=== PATIENT | male | born 1950 | race African-American/Black ===

== ENCOUNTER 2017-10-19 13:34 | Emergency (ER) | payer MEDICARE, BC ==
[2017-10-19 14:08] LABS: #Lymphocytes 1.4 thou/uL (1.20-3.40); #Monocytes 0.3 thou/uL (0.11-0.59); #Neutrophils 3.4 thou/uL (1.40-6.50); %Basophils 0.3 % (0.0-1.0); %Eosinophils 0.6 % (0.0-10.0); %Lymphocytes 26.9 % (21.0-51.0); %Monocytes 6.3 % (0.0-10.0); %Neutrophils 65.9 % (42.0-75.0); Hemoglobin 13.8 g/dL (14.0-18.0); Mean Corpuscular HGB CONC 32.9 g/dL (32.0-36.0); Mean Corpuscular Hemoglobin 28.8 pg (27.0-31.0); Mean Corpuscular Volume 87.4 fl (80.0-94.0); Mean Platelet Volume 8.4 fL (7.4-10.4); Platelet Count 159 thou/uL (130-400); RBC Distribution Width 13.5 % (11.5-14.5); White Blood Cell (WBC) Count 5.1 thou/uL (4.8-10.8)
[2017-10-19 14:35] LABS: CKMB 4.5 ng/mL (0-6.6); Troponin I 0.013 ng/mL (< 0.028)
[2017-10-19 14:52] LABS: ALT (SGPT) 20 U/L (8-55); AST (SGOT) 27 U/L (5-34); Albumin 4.2 g/dL (3.4-4.8); Alkaline Phosphatase 90 U/L (40-150); Anion Gap 18 mmol/L (10-20); BUN (Urea Nitrogen) 13 mg/dL (8.4-25.7); Bilirubin, Total 0.4 mg/dL (0.2-1.2); Calc. Creatinine Clearance 0 mL/min (70-130); Calcium 9.5 mg/dL (7.8-10.44); Carbon Dioxide 20 mmol/L (23-31); Chloride 104 mmol/L (98-107); Estimated GFR-MDRD 72; Globulin 3.4 g/dL (2.4-3.5); Glucose 217 mg/dL (80-115); Potassium 4.8 mmol/L (3.5-5.1); Protein, Total 7.6 g/dL (5.8-8.1); Sodium 137 mmol/L (136-145)
--- NOTE | 2017-10-19 15:04 | RAD ---
AP CHEST: History: 66-year-old, history of syncope. Date: 10-19-17 Comparison: 12-11-14 FINDINGS: AP chest demonstrates sternotomy wires seen. The lungs are well aerated. No evidence of active intrat horacic disease seen. No evidence of effusions, pneumonia, or pneumothorax seen. IMPRESSION: Unremarkable AP view chest. POS: [facility]
== END 2017-10-19 15:23 | disposition home or self-care (01) ==
LOC: ERS 13:34
DX: S80.212A Abrasion, left knee, initial encounter (principal); R55 Syncope and collapse; E11.9 Type 2 diabetes mellitus without complications; I10 Essential (primary) hypertension; Z79.82 Long term (current) use of aspirin; Z79.899 Other long term (current) drug therapy; Z79.84 Long term (current) use of oral hypoglycemic drugs; W19.XXXA Unspecified fall, initial encounter
CPT/HCPCS: 71045; 80053; 82553; 83880; 84484; 85025; 93005

== ENCOUNTER 2021-09-01 19:23 | Observation (INO) | payer MEDICARE, BC ==
[2021-09-01 20:22] LABS: #Lymphocytes 0.8 thou/uL (1.20-3.40); #Monocytes 0.6 thou/uL (0.11-0.59); #Neutrophils 3.2 thou/uL (1.40-6.50); %Eosinophils 0.2 % (0.0-10.0); %Lymphocytes 16.8 % (21.0-51.0); %Monocytes 12.5 % (0.0-10.0); %Neutrophils 70.4 % (42.0-75.0); Hemoglobin 13.2 g/dL (14.0-18.0); Mean Corpuscular HGB CONC 33.4 g/dL (32.0-36.0); Mean Corpuscular Hemoglobin 29.2 pg (27.0-31.0); Mean Corpuscular Volume 87.3 fL (78.0-98.0); RBC Distribution Width 12.7 % (11.5-14.5); Red Blood Cell (RBC) Count 4.53 mill/uL (4.70-6.10); White Blood Cell (WBC) Count 4.5 thou/uL (4.8-10.8)
[2021-09-01 20:36] LABS: MDiff Complete? YES; Platelet Count 101 thou/uL (130-400); Platelet Morphology Comment Appears Decreased; Polychromasia SLIGHT = 2-3 cells (100X) (0-2/hpf)
[2021-09-01 20:43] LABS: ALT (SGPT) 14 U/L (8-55); AST (SGOT) 20 U/L (5-34); Albumin 4.2 g/dL (3.4-4.8); Alkaline Phosphatase 88 U/L (40-110); Anion Gap 14 mmol/L (10-20); BUN (Urea Nitrogen) 12 mg/dL (8.4-25.7); Bilirubin, Total 0.4 mg/dL (0.2-1.2); CK (CPK) 169 U/L (30-200); Calc. Creatinine Clearance 0 mL/min (70-130); Calcium 8.7 mg/dL (7.8-10.44); Carbon Dioxide 23 mmol/L (23-31); Chloride 100 mmol/L (98-107); Glucose 202 mg/dL (83-110); Magnesium 1.5 mg/dL (1.6-2.6); Potassium 4.4 mmol/L (3.5-5.1); Protein, Total 7.2 g/dL (5.8-8.1); Sodium 133 mmol/L (136-145)
[2021-09-01] MEDS ORDERED: Magnesium 2 GM/50 ML BAG (IN WATER) ONE (22:44)
[2021-09-01] MEDS ORDERED: Dextrose 50% Abboject 50 ML SYRINGE SLOW IVP PRN (23:58)
[2021-09-01] MEDS ORDERED: HumaLOG 300 UNITS/3 ML VIAL SC PRN ×2 (23:58)
[2021-09-01] MEDS ORDERED: Dextrose 5% in Water 1,000 ML IV PRN (23:58)
[2021-09-02 00:10] VITALS: BMI 26.4
[2021-09-02 01:18] LABS: Phosphorus 2.5 mg/dL (2.3-4.7)
[2021-09-02 01:24] LABS: Troponin I 0.021 ng/mL (< 0.028)
[2021-09-02] MEDS ORDERED: Acetaminophen 325 MG TAB PO PRN (04:11)
[2021-09-02] MEDS ORDERED: Ondansetron ODT 4 MG TAB PO PRN (04:11)
[2021-09-02] MEDS ORDERED: Ondansetron PF 4 MG/2 ML Vial IVP PRN (04:11)
[2021-09-02] MEDS ORDERED: Acetaminophen 650 MG Suppository PR PRN (04:11)
[2021-09-02 05:12] LABS: Bacteria/HPF None Seen HPF (None Seen); Bilirubin Negative (Negative); Blood, Urine Trace (Negative); Clarity Clear (Clear); Glucose, Urine (Dipstick) 100 mg/dL (Negative); Ketone, Urine Negative (Negative); Leukocyte Negative Leu/uL (Negative); Nitrite Negative (Negative); Protein, Urine (Dipstick) Negative (Neg-Trace); RBC/HPF 0-3 HPF (0-3); Specific Gravity, Urine 1.013 (1.002-1.036); Squamous Epithelial 0-3 HPF (0-3); Urobilinogen Normal mg/dL (Less than 2); WBC/HPF 0-3 HPF (0-3); pH, Urine 7.5 (5.0-9.0)
[2021-09-02 05:23] LABS: Urine Culture Reflex No No
[2021-09-02] MEDS ORDERED: Electrolyte Replacement Protocol 1 EACH FS SCH (05:45)
[2021-09-02] MEDS ORDERED: Piperacillin/Tazobactam 3.375 GM in Sodium Chloride 0.9% 100 ML IVPB SCH ×2 (06:00→10:00)
[2021-09-02] MEDS ORDERED: Magnesium 2 GM/50 ML 2 GM in Premix Bag 1 BAG IVPB SCH (06:00)
[2021-09-02 06:30] LABS: Troponin I 0.032 ng/mL (< 0.028)
[2021-09-02 07:43] LABS: Lactic Acid 1.3 mmol/L (0.5-2.2)
[2021-09-02 08:09] LABS: Free T4 (Free Thyroxine) 0.9 ng/dL (0.70-1.48)
[2021-09-02] MEDS ORDERED: Enoxaparin Sodium 40 MG/0.4 ML SYRINGE SC SCH (09:00)
[2021-09-02] MEDS ORDERED: Iopamidol 370 76% 100 ML VIAL ONE (11:39)
[2021-09-02 12:29] LABS: SARS-CoV-2 PCR by NAA Not Detected (NotDetected)
[2021-09-02 12:38] LABS: Hemoglobin 13.1 g/dL (14.0-18.0); Mean Corpuscular HGB CONC 32.5 g/dL (32.0-36.0); Mean Corpuscular Hemoglobin 28.4 pg (27.0-31.0); Mean Corpuscular Volume 87.4 fL (78.0-98.0); Mean Platelet Volume 8.9 fL (7.4-10.4); Platelet Count 102 thou/uL (130-400); RBC Distribution Width 12.9 % (11.5-14.5); White Blood Cell (WBC) Count 3.7 thou/uL (4.8-10.8)
[2021-09-02 12:49] LABS: ALT (SGPT) 15 U/L (8-55); AST (SGOT) 26 U/L (5-34); Alkaline Phosphatase 79 U/L (40-110); Anion Gap 17 mmol/L (10-20); BUN (Urea Nitrogen) 10 mg/dL (8.4-25.7); Bilirubin, Total 0.4 mg/dL (0.2-1.2); Calc. Creatinine Clearance 67 mL/min (70-130); Calcium 8.5 mg/dL (7.8-10.44); Carbon Dioxide 20 mmol/L (23-31); Chloride 99 mmol/L (98-107); Globulin 3.4 g/dL (2.4-3.5); Glucose 189 mg/dL (83-110); Protein, Total 7.4 g/dL (5.8-8.1); Sodium 132 mmol/L (136-145)
[2021-09-02 12:55] LABS: Band 6 % (5-11); Lymphocytes 13 % (21-51); MDiff Complete? YES; Monocytes 15 % (0-10); Neutrophil 65 % (42-75); Ovalocytes SLIGHT = 2-5 cells (100X) (0-1/hpf); Platelet Morphology Comment Appears Decreased; Polychromasia SLIGHT = 2-3 cells (100X) (0-2/hpf); Reactive Lymphocytes 1 % (0-10)
[2021-09-02 14:41] VITALS: TEMP 97.6
[2021-09-02] MEDS ORDERED: Lisinopril 10 MG TAB PO SCH (15:45)
[2021-09-02 16:41] VITALS: BP 172/96
[2021-09-02] MEDS ORDERED: Metoprolol Tartrate 25 MG TAB PO SCH (21:00)
[2021-09-03] MEDS ORDERED: Lisinopril 10 MG TAB PO SCH (09:00)
== END 2021-09-02 17:15 | disposition home or self-care (01) ==
LOC: ERS 19:23 → 2NO 22:48
PROVIDERS: ADMIT Student in an Organized Health Care Education/Training Program; ATTEND Internal Medicine
DX: R55 Syncope and collapse (principal); R53.1 Weakness; E87.1 Hypo-osmolality and hyponatremia; I71.4 Abdominal aortic aneurysm, without rupture; I72.3 Aneurysm of iliac artery; N28.1 Cyst of kidney, acquired; E83.42 Hypomagnesemia; E11.51 Type 2 diabetes mellitus with diabetic peripheral angiopathy without gangrene; I70.203 Unspecified atherosclerosis of native arteries of extremities, bilateral legs; I25.10 Atherosclerotic heart disease of native coronary artery without angina pectoris; D69.6 Thrombocytopenia, unspecified; I13.0 Hypertensive heart and chronic kidney disease with heart failure and stage 1 through stage 4 chronic kidney disease, or unspecified chronic kidney disease; E11.22 Type 2 diabetes mellitus with diabetic chronic kidney disease; N18.9 Chronic kidney disease, unspecified; I50.22 Chronic systolic (congestive) heart failure; R06.6 Hiccough; R77.8 Other specified abnormalities of plasma proteins; R65.10 Systemic inflammatory response syndrome (SIRS) of non-infectious origin without acute organ dysfunction; I08.1 Rheumatic disorders of both mitral and tricuspid valves; E78.00 Pure hypercholesterolemia, unspecified; Z87.891 Personal history of nicotine dependence; Z79.82 Long term (current) use of aspirin; Z79.84 Long term (current) use of oral hypoglycemic drugs; Z79.899 Other long term (current) drug therapy; Z95.1 Presence of aortocoronary bypass graft; Z20.822 Contact with and (suspected) exposure to COVID-19
CPT/HCPCS: 71045; 74177; 80053; 81001; 82550; 82962; 83605; 83735; 84100; 84439; 84481; 84484 ×3; 85025; 87040; 87149 ×2; 93005; 93306; 93880; 96367; 96376; G0378 ×2; U0003; U0005; 36415; 36416; 84443; J2543; J3475; J3490; Q9967

== ENCOUNTER 2021-11-24 09:00 | Inpatient (IN) | payer MEDICARE, BC ==
[2021-11-29] MEDS ORDERED: Dexamethasone 4 mg/ml Vial ONE (06:32)
[2021-11-29] MEDS ORDERED: EPINEPHrine 1 MG/ML AMP ONE (06:32)
[2021-11-29] MEDS ORDERED: Heparin 10,000 UNITS/ 10 ML VIAL ONE ×2 (06:32→08:14)
[2021-11-29] MEDS ORDERED: Bupivacaine PF 0.5% 30 ML VIAL ONE (06:32)
[2021-11-29] MEDS ORDERED: Protamine Sulfate 50 MG/5 ML VIAL ONE ×2 (06:32→09:49)
[2021-11-29] MEDS ORDERED: Midazolam HCl 2 mg/2 ml Vial ONE (06:48)
[2021-11-29] MEDS ORDERED: fentaNYL Citrate/PF 100 MCG/2 ML SYRINGE ONE ×2 (06:48→09:45)
[2021-11-29] MEDS ORDERED: Lidocaine 1% MPF 2 ML VIAL ONE (07:07)
[2021-11-29] MEDS ORDERED: ceFAZolin (BATCH) 2 GM/100 ML BAG ONE (07:25)
[2021-11-29] MEDS ORDERED: Rocuronium Bromide 10 MG/ML (10ML VIAL) ONE (07:46)
[2021-11-29] MEDS ORDERED: Lidocaine 1% PF 5 ML VIAL ONE (07:46)
[2021-11-29] MEDS ORDERED: PROPOFOL 200 MG/20 ML VIAL ONE (07:46)
[2021-11-29] MEDS ORDERED: Dexamethasone 20 MG/5 ML VIAL ONE (07:46)
[2021-11-29] MEDS ORDERED: Albumin 5% 500 ML ONE ×2 (08:21→09:09)
[2021-11-29] MEDS ORDERED: Norepinephrine 4 MG/4 ML VIAL ONE ×2 (08:28→08:32)
[2021-11-29] MEDS ORDERED: Insulin Regular 300 UNITS/3 ML VIAL ONE (09:07)
[2021-11-29] MEDS ORDERED: Sodium Bicarb 50 MEQ/50 ML Abboject 8.4% SYRINGE ONE ×2 (09:09→09:45)
[2021-11-29] MEDS ORDERED: Propofol 1,000 MG/100 ML VIAL IV ONE (11:10)
[2021-11-29 11:18] LABS: Actual Bicarbonate (HCO3a) 22.1 mEq/L (22-28); Base Excess (BEa) -4.4 mEq/L (-2.0 to +3.0); Calcium, Ionized (arterial) 0.97 mmol/L (1.12-1.30); Carboxyhemoglobin (COHb) 0.3 gm% (0.0-3.0); Hemoglobin (Hb) 11.2 g/dL (14.0-18.0); Potassium - ABG Lab 3.82 mmol/L (3.70-5.30); pH, Arterial 7.29 (7.35-7.45)
[2021-11-29] MEDS ORDERED: Acetaminophen 325 MG TAB PO PRN (11:19)
[2021-11-29] MEDS ORDERED: Morphine 2 MG/ML VIAL SLOW IVP PRN ×2 (11:19→12:00)
[2021-11-29] MEDS ORDERED: Morphine 4 MG/ML VIAL SLOW IVP PRN (11:19)
[2021-11-29] MEDS ORDERED: Norepinephrine 8 MG/0.9% NS 250 ML IVPB PRN (11:19)
[2021-11-29] MEDS ORDERED: traMADol HCl 50 MG TAB PO PRN ×2 (11:19)
[2021-11-29] MEDS ORDERED: Promethazine HCl 25 MG/ML VIAL IM PRN (11:19)
[2021-11-29] MEDS ORDERED: Insulin Regular 300 UNITS/3 ML VIAL SC PRN (11:19)
[2021-11-29 11:23] LABS: Puncture Site Arterial Line
[2021-11-29] MEDS ORDERED: Promethazine HCl 25 MG SUPP PR PRN (11:26)
[2021-11-29] MEDS ORDERED: HUMULIN R 100 UNITS in Sodium Chloride 0.9% 100 ML IVPB SCH (11:30)
[2021-11-29] MEDS: Sodium Chloride 0.9% 1,000 ML IV SCH ×2 (11:47→21:29)
[2021-11-29] MEDS ORDERED: Electrolyte Replacement Protocol 1 EACH FS ONE (11:49)
[2021-11-29] MEDS ORDERED: fentaNYL Citrate-0.9 % NaCl/PF 100 ML IV SCH (12:00)
[2021-11-29] MEDS ORDERED: Ventilator Sedation Protocol 1 EACH FS SCH (12:00)
[2021-11-29] MEDS ORDERED: Fentanyl BOLUS 250 ML IVPB PRN (12:00)
[2021-11-29] MEDS ORDERED: Propofol 1,000 MG/100 ML VIAL IV PRN (12:00)
[2021-11-29] MEDS ORDERED: Electrolyte Replacement Protocol FS PRN (12:00)
[2021-11-29] MEDS ORDERED: Lorazepam 2 MG/ML VIAL SLOW IVP PRN (12:00)
[2021-11-29] MEDS ORDERED: Propofol BOLUS 1,000 MG/100 ML VIAL IV PRN (12:00)
[2021-11-29 12:12] LABS: Anion Gap 9 mmol/L (10-20); BUN (Urea Nitrogen) 14 mg/dL (8.4-25.7); Calc. Creatinine Clearance 74 mL/min (70-130); Calcium 6.5 mg/dL (7.8-10.44); Carbon Dioxide 22 mmol/L (23-31); Chloride 114 mmol/L (98-107); Glucose 160 mg/dL (83-110); Potassium 3.8 mmol/L (3.5-5.1); Sodium 141 mmol/L (136-145)
[2021-11-29 12:18] LABS: #Lymphocytes 1.6 thou/uL (1.20-3.40); #Monocytes 0.2 thou/uL (0.11-0.59); %Basophils 0.2 % (0.0-1.0); %Eosinophils 0.5 % (0.0-10.0); %Lymphocytes 16.1 % (21.0-51.0); %Monocytes 2.2 % (0.0-10.0); Hemoglobin 11.1 g/dL (14.0-18.0); MDiff Complete? YES; Mean Corpuscular HGB CONC 33.3 g/dL (32.0-36.0); Mean Corpuscular Hemoglobin 30.1 pg (27.0-31.0); Mean Corpuscular Volume 90.2 fL (78.0-98.0); Mean Platelet Volume 8.9 fL (7.4-10.4); Platelet Count 81 thou/uL (130-400); Platelet Morphology Comment Appears Decreased; Polychromasia SLIGHT = 2-3 cells (100X) (0-2/hpf); RBC Distribution Width 13.7 % (11.5-14.5); Red Blood Cell (RBC) Count 3.69 mill/uL (4.70-6.10); White Blood Cell (WBC) Count 9.9 thou/uL (4.8-10.8)
[2021-11-29 12:26] LABS: Actual Bicarbonate (HCO3a) 19.1 mEq/L (22-28); Base Excess (BEa) -4.5 mEq/L (-2.0 to +3.0); CO2 Tension 30.7 mmHg (35.0-45.0); Calcium, Ionized (arterial) 0.96 mmol/L (1.12-1.30); Carboxyhemoglobin (COHb) 0.3 gm% (0.0-3.0); Hemoglobin (Hb) 11.8 g/dL (14.0-18.0); O2 Tension (PaO2), arterial 86.4 mmHg (> 70.0); Potassium - ABG Lab 3.36 mmol/L (3.70-5.30); pH, Arterial 7.41 (7.35-7.45)
[2021-11-29 12:28] LABS: Puncture Site Arterial Line
[2021-11-29 12:29] LABS: ALV-art Gradient 160.425 mmHg (0-20)
[2021-11-29 14:21] LABS: Actual Bicarbonate (HCO3a) 17.2 mEq/L (22-28); Base Excess (BEa) -4.4 mEq/L (-2.0 to +3.0); Calcium, Ionized (arterial) 0.93 mmol/L (1.12-1.30); Carboxyhemoglobin (COHb) 0.3 gm% (0.0-3.0); Hemoglobin (Hb) 12.1 g/dL (14.0-18.0); O2 Tension (PaO2), arterial 153.1 mmHg (> 70.0); Potassium - ABG Lab 3.15 mmol/L (3.70-5.30); pH, Arterial 7.49 (7.35-7.45)
[2021-11-29 14:22] LABS: ALV-art Gradient 103.225 mmHg (0-20); CO2 Tension 23.1 mmHg (35.0-45.0); Puncture Site Arterial Line
[2021-11-29] MEDS: Morphine 2 MG/ML VIAL SLOW IVP PRN ×2 (14:55→20:06)
[2021-11-29] MEDS ORDERED: hydrALAZINE 20 MG/ML VIAL SLOW IVP PRN ×2 (15:27)
[2021-11-29] MEDS: ceFAZolin (BATCH) 2 GM in Premix Bag 1 BAG IVPB SCH (16:11)
[2021-11-29] MEDS: Ondansetron PF 4 MG/2 ML Vial IVP PRN (16:31)
[2021-11-29] MEDS: traMADol HCl 50 MG TAB PO PRN (18:26)
[2021-11-30] MEDS: ceFAZolin (BATCH) 2 GM in Premix Bag 1 BAG IVPB SCH ×2 (00:06→08:58)
[2021-11-30] MEDS: Morphine 4 MG/ML VIAL SLOW IVP PRN ×4 (00:06→19:32)
[2021-11-30] MEDS: traMADol HCl 50 MG TAB PO PRN ×4 (03:12→20:59)
[2021-11-30] MEDS: Sodium Chloride 0.9% 1,000 ML IV SCH (04:46)
[2021-11-30 04:47] LABS: #Lymphocytes 0.7 thou/uL (1.20-3.40); #Monocytes 0.7 thou/uL (0.11-0.59); #Neutrophils 8.9 thou/uL (1.40-6.50); %Eosinophils 0.1 % (0.0-10.0); %Monocytes 6.7 % (0.0-10.0); %Neutrophils 86.2 % (42.0-75.0); Mean Corpuscular Hemoglobin 30.2 pg (27.0-31.0); Mean Corpuscular Volume 88.7 fL (78.0-98.0); Mean Platelet Volume 8.8 fL (7.4-10.4); Platelet Count 86 thou/uL (130-400); RBC Distribution Width 14.3 % (11.5-14.5); Red Blood Cell (RBC) Count 3.66 mill/uL (4.70-6.10); White Blood Cell (WBC) Count 10.3 thou/uL (4.8-10.8)
[2021-11-30 04:59] LABS: Anion Gap 13 mmol/L (10-20); BUN (Urea Nitrogen) 15 mg/dL (8.4-25.7); Calc. Creatinine Clearance 75 mL/min (70-130); Calcium 7.4 mg/dL (7.8-10.44); Carbon Dioxide 20 mmol/L (23-31); Chloride 112 mmol/L (98-107); Glucose 147 mg/dL (83-110); Sodium 141 mmol/L (136-145)
[2021-11-30] MEDS ORDERED: Dextrose 50% Abboject 50 ML SYRINGE SLOW IVP PRN (06:04)
[2021-11-30] MEDS ORDERED: Dextrose 5% in Water 1,000 ML IV PRN (06:04)
[2021-11-30] MEDS ORDERED: Sodium Chloride 0.9% 1,000 ML IV SCH (06:05)
[2021-11-30] MEDS: Aspirin 81 mg Enteric Coated Tablet PO SCH (08:08)
[2021-11-30] MEDS: Pantoprazole 40 MG VIAL IVP SCH (08:09)
[2021-11-30] MEDS: Multivitamin W/ Minerals 1 TAB PO SCH (08:09)
[2021-11-30] MEDS: Ondansetron PF 4 MG/2 ML Vial IVP PRN (08:09)
[2021-11-30] MEDS ORDERED: Aspirin Chewable 81 MG TAB PO SCH (09:00)
[2021-11-30] MEDS: HumaLOG 300 UNITS/3 ML VIAL SC PRN ×3 (11:29→23:48)
[2021-11-30] MEDS: Atorvastatin Calcium 20 MG TAB PO SCH (20:59)
[2021-12-01] MEDS: HumaLOG 300 UNITS/3 ML VIAL SC PRN ×4 (06:20→22:44)
[2021-12-01] MEDS: traMADol HCl 50 MG TAB PO PRN ×2 (06:26→20:07)
[2021-12-01] MEDS: Multivitamin W/ Minerals 1 TAB PO SCH (08:20)
[2021-12-01] MEDS: Aspirin 81 mg Enteric Coated Tablet PO SCH (08:20)
[2021-12-01] MEDS: Pantoprazole 40 MG VIAL IVP SCH (08:20)
[2021-12-01] MEDS: Morphine 4 MG/ML VIAL SLOW IVP PRN ×3 (08:21→16:47)
[2021-12-01] MEDS: Atorvastatin Calcium 20 MG TAB PO SCH (20:05)
[2021-12-02] MEDS: Morphine 4 MG/ML VIAL SLOW IVP PRN ×4 (04:16→21:01)
[2021-12-02] MEDS: traMADol HCl 50 MG TAB PO PRN ×3 (06:12→17:55)
[2021-12-02] MEDS: HumaLOG 300 UNITS/3 ML VIAL SC PRN ×3 (06:13→21:02)
[2021-12-02] MEDS: Aspirin 81 mg Enteric Coated Tablet PO SCH (09:18)
[2021-12-02] MEDS: Multivitamin W/ Minerals 1 TAB PO SCH (09:18)
[2021-12-02] MEDS: Pantoprazole 40 MG VIAL IVP SCH (09:19)
[2021-12-02] MEDS ORDERED: Furosemide 40 MG/4 ML VIAL SLOW IVP SCH (14:30)
[2021-12-02] MEDS: metFORMIN 500 MG TAB PO SCH (16:28)
[2021-12-02] MEDS: Atorvastatin Calcium 20 MG TAB PO SCH (20:57)
[2021-12-03] MEDS: traMADol HCl 50 MG TAB PO PRN ×3 (03:19→18:30)
[2021-12-03] MEDS: HumaLOG 300 UNITS/3 ML VIAL SC PRN ×3 (05:37→17:45)
[2021-12-03] MEDS ORDERED: Furosemide 20 MG TAB PO SCH (09:00)
[2021-12-03] MEDS: Furosemide 40 MG TAB PO SCH ×2 (09:19→15:25)
[2021-12-03] MEDS: Multivitamin W/ Minerals 1 TAB PO SCH (09:19)
[2021-12-03] MEDS: Alogliptin 25 MG TAB PO SCH (09:19)
[2021-12-03] MEDS: Pantoprazole 40 MG VIAL IVP SCH (09:19)
[2021-12-03] MEDS: Potassium Chloride 10 MEQ TAB PO SCH ×2 (09:19→17:45)
[2021-12-03] MEDS: metFORMIN 500 MG TAB PO SCH ×2 (09:19→17:45)
[2021-12-03] MEDS: Aspirin 81 mg Enteric Coated Tablet PO SCH (09:19)
[2021-12-03] MEDS: Atorvastatin Calcium 20 MG TAB PO SCH (20:39)
[2021-12-04] MEDS: traMADol HCl 50 MG TAB PO PRN ×4 (00:38→20:01)
[2021-12-04] MEDS: Ondansetron PF 4 MG/2 ML Vial IVP PRN ×2 (00:39→13:20)
[2021-12-04 05:13] LABS: Anion Gap 16 mmol/L (10-20); BUN (Urea Nitrogen) 19 mg/dL (8.4-25.7); Calc. Creatinine Clearance 72 mL/min (70-130); Calcium 8.1 mg/dL (7.8-10.44); Carbon Dioxide 25 mmol/L (23-31); Chloride 98 mmol/L (98-107); Glucose 195 mg/dL (83-110); Potassium 3.4 mmol/L (3.5-5.1); Sodium 136 mmol/L (136-145)
[2021-12-04] MEDS: HumaLOG 300 UNITS/3 ML VIAL SC PRN (05:41)
[2021-12-04] MEDS: Potassium Chloride 10 MEQ TAB PO SCH ×2 (09:25→17:59)
[2021-12-04] MEDS: Multivitamin W/ Minerals 1 TAB PO SCH (09:25)
[2021-12-04] MEDS: Pantoprazole 40 MG VIAL IVP SCH (09:26)
[2021-12-04] MEDS: Furosemide 40 MG TAB PO SCH ×2 (09:26→14:35)
[2021-12-04] MEDS: metFORMIN 500 MG TAB PO SCH ×2 (09:26→17:58)
[2021-12-04] MEDS: Aspirin 81 mg Enteric Coated Tablet PO SCH (09:26)
[2021-12-04] MEDS: Alogliptin 25 MG TAB PO SCH (09:26)
[2021-12-04] MEDS: Lactated Ringer's 1,000 ML IV SCH ×2 (13:41→21:11)
[2021-12-04] MEDS ORDERED: Metoclopramide HCl 10 MG/2 ML VIAL IVP SCH (14:30)
[2021-12-04] MEDS ORDERED: Ondansetron ORAL SOLN. 4 MG/5 ML UDCUP PO PRN (16:48)
[2021-12-04] MEDS ORDERED: Haloperidol Lactate 5 MG/ML VIAL SLOW IVP SCH (17:00)
[2021-12-04] MEDS: Metoclopramide HCl 10 MG/2 ML VIAL IVP SCH ×2 (17:58→23:45)
[2021-12-04] MEDS ORDERED: Ondansetron ODT 8 MG TAB PO PRN (20:00)
[2021-12-04] MEDS: Atorvastatin Calcium 20 MG TAB PO SCH (20:01)
[2021-12-05 04:25] LABS: #Lymphocytes 0.4 thou/uL (1.20-3.40); #Monocytes 0.5 thou/uL (0.11-0.59); #Neutrophils 3.3 thou/uL (1.40-6.50); %Basophils 0.3 % (0.0-1.0); %Eosinophils 0.2 % (0.0-10.0); %Lymphocytes 9.7 % (21.0-51.0); %Monocytes 12.4 % (0.0-10.0); %Neutrophils 77.4 % (42.0-75.0); Hemoglobin 9.4 g/dL (14.0-18.0); Mean Corpuscular Hemoglobin 29.9 pg (27.0-31.0); Mean Corpuscular Volume 90.4 fL (78.0-98.0); Mean Platelet Volume 8.3 fL (7.4-10.4); Platelet Count 208 thou/uL (130-400); RBC Distribution Width 14.1 % (11.5-14.5); Red Blood Cell (RBC) Count 3.15 mill/uL (4.70-6.10); White Blood Cell (WBC) Count 4.3 thou/uL (4.8-10.8)
[2021-12-05 04:48] LABS: Anion Gap 19 mmol/L (10-20); BUN (Urea Nitrogen) 22 mg/dL (8.4-25.7); Calc. Creatinine Clearance 60 mL/min (70-130); Calcium 8.5 mg/dL (7.8-10.44); Carbon Dioxide 22 mmol/L (23-31); Chloride 99 mmol/L (98-107); Glucose 282 mg/dL (83-110); Lipase 19 U/L (8-78); Potassium 3.5 mmol/L (3.5-5.1); Sodium 136 mmol/L (136-145)
[2021-12-05] MEDS: Lactated Ringer's 1,000 ML IV SCH ×3 (05:17→21:31)
[2021-12-05] MEDS: Metoclopramide HCl 10 MG/2 ML VIAL IVP SCH ×4 (05:17→23:43)
[2021-12-05] MEDS: HumaLOG 300 UNITS/3 ML VIAL SC PRN ×2 (05:35→12:33)
[2021-12-05] MEDS: Furosemide 40 MG TAB PO SCH ×2 (08:44→16:06)
[2021-12-05] MEDS: Aspirin 81 mg Enteric Coated Tablet PO SCH (08:44)
[2021-12-05] MEDS: Pantoprazole 40 MG VIAL IVP SCH (08:44)
[2021-12-05] MEDS: Multivitamin W/ Minerals 1 TAB PO SCH (08:44)
[2021-12-05] MEDS: Potassium Chloride 10 MEQ TAB PO SCH ×2 (08:44→16:06)
[2021-12-05] MEDS: metFORMIN 500 MG TAB PO SCH ×2 (08:44→16:06)
[2021-12-05] MEDS: Alogliptin 25 MG TAB PO SCH (10:10)
[2021-12-05] MEDS: traMADol HCl 50 MG TAB PO PRN ×2 (17:39→23:44)
[2021-12-05] MEDS: Atorvastatin Calcium 20 MG TAB PO SCH (20:33)
[2021-12-06 04:32] LABS: #Basophils 0.1 thou/uL (0.0-0.2); #Lymphocytes 0.5 thou/uL (1.20-3.40); #Monocytes 0.6 thou/uL (0.11-0.59); #Neutrophils 5.3 thou/uL (1.40-6.50); %Basophils 1.5 % (0.0-1.0); %Eosinophils 0.1 % (0.0-10.0); %Lymphocytes 7.8 % (21.0-51.0); %Monocytes 9.7 % (0.0-10.0); %Neutrophils 81.1 % (42.0-75.0); Hemoglobin 10.1 g/dL (14.0-18.0); Mean Corpuscular HGB CONC 33.7 g/dL (32.0-36.0); Mean Corpuscular Hemoglobin 30.9 pg (27.0-31.0); Mean Corpuscular Volume 91.7 fL (78.0-98.0); Mean Platelet Volume 8.4 fL (7.4-10.4); Platelet Count 236 thou/uL (130-400); RBC Distribution Width 14.4 % (11.5-14.5); Red Blood Cell (RBC) Count 3.27 mill/uL (4.70-6.10); White Blood Cell (WBC) Count 6.5 thou/uL (4.8-10.8)
[2021-12-06 04:49] LABS: Anion Gap 16 mmol/L (10-20); BUN (Urea Nitrogen) 26 mg/dL (8.4-25.7); Calc. Creatinine Clearance 47 mL/min (70-130); Carbon Dioxide 21 mmol/L (23-31); Chloride 107 mmol/L (98-107); Glucose 210 mg/dL (83-110); Potassium 3.8 mmol/L (3.5-5.1); Sodium 140 mmol/L (136-145)
[2021-12-06] MEDS: Lactated Ringer's 1,000 ML IV SCH ×3 (05:28→20:33)
[2021-12-06] MEDS: Metoclopramide HCl 10 MG/2 ML VIAL IVP SCH ×5 (05:28→23:09)
[2021-12-06] MEDS: metFORMIN 500 MG TAB PO SCH ×3 (08:43→17:20)
[2021-12-06] MEDS: Alogliptin 25 MG TAB PO SCH (08:43)
[2021-12-06] MEDS: Aspirin 81 mg Enteric Coated Tablet PO SCH (08:43)
[2021-12-06] MEDS: Furosemide 40 MG TAB PO SCH ×3 (08:43→17:22)
[2021-12-06] MEDS: Multivitamin W/ Minerals 1 TAB PO SCH (08:43)
[2021-12-06] MEDS: Pantoprazole 40 MG VIAL IVP SCH (08:43)
[2021-12-06] MEDS: Potassium Chloride 10 MEQ TAB PO SCH ×3 (08:43→17:21)
[2021-12-06] MEDS ORDERED: Lactated Ringer's 1,000 ML IV SCH (12:15)
[2021-12-06] MEDS: HumaLOG 300 UNITS/3 ML VIAL SC PRN (12:49)
[2021-12-06] MEDS ORDERED: Metoprolol Tartrate 5 MG/5 ML VIAL IVP SCH (17:00)
[2021-12-06] MEDS: Atorvastatin Calcium 20 MG TAB PO SCH (20:33)
[2021-12-06] MEDS: Metoprolol Tartrate 5 MG/5 ML VIAL IVP SCH (23:09)
[2021-12-07] MEDS: Metoclopramide HCl 10 MG/2 ML VIAL IVP SCH ×4 (05:27→23:41)
[2021-12-07] MEDS: Metoprolol Tartrate 5 MG/5 ML VIAL IVP SCH ×4 (05:27→23:41)
[2021-12-07] MEDS: Lactated Ringer's 1,000 ML IV SCH ×3 (05:28→17:25)
[2021-12-07] MEDS: Pantoprazole 40 MG VIAL IVP SCH (08:32)
[2021-12-07] MEDS: Furosemide 40 MG TAB PO SCH ×2 (08:33→13:40)
[2021-12-07] MEDS: metFORMIN 500 MG TAB PO SCH ×2 (08:33→17:23)
[2021-12-07] MEDS: Multivitamin W/ Minerals 1 TAB PO SCH (08:33)
[2021-12-07] MEDS: Alogliptin 25 MG TAB PO SCH (08:33)
[2021-12-07] MEDS: Potassium Chloride 10 MEQ TAB PO SCH ×2 (08:33→17:23)
[2021-12-07] MEDS: Aspirin 81 mg Enteric Coated Tablet PO SCH (08:33)
[2021-12-07 13:56] LABS: Analyzer IN Cardio OR; Base Excess (BEa) -8.1 mEq/L (-2.0 to +3.0); CO2 Tension 38.9 mmHg (35.0-45.0); Calcium, Ionized (arterial) 0.88 mmol/L (1.12-1.30); O2 Tension (PaO2), arterial 438.6 mmHg (> 70.0); Potassium - ABG Lab 3.54 mmol/L (3.70-5.30); pH, Arterial 7.28 (7.35-7.45)
[2021-12-07 13:57] LABS: Actual Bicarbonate (HCO3a) 14.6 mEq/L (22-28); Analyzer IN Cardio OR; Base Excess (BEa) -14.1 mEq/L (-2.0 to +3.0); CO2 Tension 46.4 mmHg (35.0-45.0); Calcium, Ionized (arterial) 1.01 mmol/L (1.12-1.30); Carboxyhemoglobin (COHb) 0.1 gm% (0.0-3.0); Hemoglobin (Hb) 10.1 g/dL (14.0-18.0); O2 Tension (PaO2), arterial 326.7 mmHg (> 70.0); Potassium - ABG Lab 4.03 mmol/L (3.70-5.30)
[2021-12-07 13:57] LABS: Actual Bicarbonate (HCO3a) 15.3 mEq/L (22-28); Analyzer IN Cardio OR; Base Excess (BEa) -11.1 mEq/L (-2.0 to +3.0); CO2 Tension 36.1 mmHg (35.0-45.0); Calcium, Ionized (arterial) 0.95 mmol/L (1.12-1.30); Carboxyhemoglobin (COHb) 0.3 gm% (0.0-3.0); Hemoglobin (Hb) 10.9 g/dL (14.0-18.0); O2 Tension (PaO2), arterial 482.5 mmHg (> 70.0); Potassium - ABG Lab 3.81 mmol/L (3.70-5.30)
[2021-12-07 13:58] LABS: Puncture Site Arterial Line; pH, Arterial 7.12 (7.35-7.45)
[2021-12-07 14:00] LABS: Puncture Site Arterial Line; pH, Arterial 7.25 (7.35-7.45)
[2021-12-07 14:01] LABS: Puncture Site Arterial Line
[2021-12-07] MEDS: Atorvastatin Calcium 20 MG TAB PO SCH (21:51)
[2021-12-08] MEDS: Lactated Ringer's 1,000 ML IV SCH ×3 (03:59→21:11)
[2021-12-08 04:16] LABS: #Monocytes 0.6 thou/uL (0.11-0.59); #Neutrophils 8.5 thou/uL (1.40-6.50); %Basophils 0.1 % (0.0-1.0); %Eosinophils 0.4 % (0.0-10.0); %Monocytes 6.1 % (0.0-10.0); %Neutrophils 83.3 % (42.0-75.0); Hemoglobin 9.3 g/dL (14.0-18.0); Mean Corpuscular HGB CONC 32.5 g/dL (32.0-36.0); Mean Corpuscular Hemoglobin 29.9 pg (27.0-31.0); Mean Platelet Volume 7.6 fL (7.4-10.4); Platelet Count 276 thou/uL (130-400); RBC Distribution Width 14.1 % (11.5-14.5); White Blood Cell (WBC) Count 10.2 thou/uL (4.8-10.8)
[2021-12-08 04:37] LABS: Anion Gap 18 mmol/L (10-20); BUN (Urea Nitrogen) 28 mg/dL (8.4-25.7); Calc. Creatinine Clearance 50 mL/min (70-130); Calcium 8.5 mg/dL (7.8-10.44); Carbon Dioxide 18 mmol/L (23-31); Chloride 110 mmol/L (98-107); Glucose 190 mg/dL (83-110); Sodium 142 mmol/L (136-145)
[2021-12-08] MEDS: Metoprolol Tartrate 5 MG/5 ML VIAL IVP SCH ×4 (05:55→23:59)
[2021-12-08] MEDS: Metoclopramide HCl 10 MG/2 ML VIAL IVP SCH ×4 (05:55→23:59)
[2021-12-08] MEDS: Aspirin 81 mg Enteric Coated Tablet PO SCH (09:34)
[2021-12-08] MEDS: Potassium Chloride 10 MEQ TAB PO SCH ×2 (09:34→17:19)
[2021-12-08] MEDS: Furosemide 40 MG TAB PO SCH ×2 (09:34→14:40)
[2021-12-08] MEDS: Multivitamin W/ Minerals 1 TAB PO SCH (09:34)
[2021-12-08] MEDS: metFORMIN 500 MG TAB PO SCH ×2 (09:34→17:19)
[2021-12-08] MEDS: Alogliptin 25 MG TAB PO SCH (09:34)
[2021-12-08] MEDS: Pantoprazole 40 MG VIAL IVP SCH (09:35)
[2021-12-08] MEDS ORDERED: Fleet Enema 133 ML BOT FS SCH (13:15)
[2021-12-08] MEDS: Atorvastatin Calcium 20 MG TAB PO SCH (21:11)
[2021-12-09] MEDS: Metoprolol Tartrate 5 MG/5 ML VIAL IVP SCH (05:48)
[2021-12-09] MEDS: Metoclopramide HCl 10 MG/2 ML VIAL IVP SCH ×3 (05:48→16:48)
[2021-12-09] MEDS: Lactated Ringer's 1,000 ML IV SCH ×2 (06:15→09:33)
[2021-12-09] MEDS: Pantoprazole 40 MG VIAL IVP SCH (09:31)
[2021-12-09] MEDS: metFORMIN 500 MG TAB PO SCH ×2 (09:31→16:47)
[2021-12-09] MEDS: Multivitamin W/ Minerals 1 TAB PO SCH (09:31)
[2021-12-09] MEDS: Alogliptin 25 MG TAB PO SCH (09:31)
[2021-12-09] MEDS: Furosemide 40 MG TAB PO SCH ×2 (09:33→13:59)
[2021-12-09] MEDS: Potassium Chloride 10 MEQ TAB PO SCH ×2 (09:33→16:47)
[2021-12-09] MEDS: Aspirin 81 mg Enteric Coated Tablet PO SCH (09:33)
[2021-12-09] MEDS: Atorvastatin Calcium 20 MG TAB PO SCH (21:03)
[2021-12-10] MEDS: Metoclopramide HCl 10 MG/2 ML VIAL IVP SCH ×2 (00:23→05:43)
[2021-12-10 04:29] VITALS: BP 106/59; TEMP 98.2
[2021-12-10] MEDS: Lactated Ringer's 1,000 ML IV SCH (05:43)
[2021-12-10 07:38] VITALS: BMI 27.5
== END 2021-12-10 08:35 | disposition home or self-care (01) | DRG 271 ==
LOC: SURG A 11-29 05:42 → CCU 11-29 11:37 → 2NO 11-30 16:09
PROVIDERS: ADMIT Thoracic Surgery (Cardiothoracic Vascular Surgery); ATTEND Thoracic Surgery (Cardiothoracic Vascular Surgery)
PROC: 04V00DZ Restriction of Abdominal Aorta with Intraluminal Device, Open Approach (ICD-10-PCS; principal; 2021-11-29)
PROC: B41G1ZZ Fluoroscopy of Left Lower Extremity Arteries using Low Osmolar Contrast (ICD-10-PCS; 2021-11-29)
PROC: 30233N1 Transfusion of Nonautologous Red Blood Cells into Peripheral Vein, Percutaneous Approach (ICD-10-PCS; 2021-11-29)
PROC: 04Q Lower Arteries, Repair (ICD-10-PCS; 2021-11-29)
PROC: 0D9670Z Drainage of Stomach with Drainage Device, Via Natural or Artificial Opening (ICD-10-PCS; 2021-12-05)
DX: I71.4 Abdominal aortic aneurysm, without rupture (principal); K56.7 Ileus, unspecified; I47.1 Supraventricular tachycardia; I50.20 Unspecified systolic (congestive) heart failure; I97.52 Accidental puncture and laceration of a circulatory system organ or structure during other procedure; Z20.822 Contact with and (suspected) exposure to COVID-19; I25.10 Atherosclerotic heart disease of native coronary artery without angina pectoris; E11.9 Type 2 diabetes mellitus without complications; E78.5 Hyperlipidemia, unspecified; I25.5 Ischemic cardiomyopathy; E78.00 Pure hypercholesterolemia, unspecified; I11.0 Hypertensive heart disease with heart failure; Y83.8 Other surgical procedures as the cause of abnormal reaction of the patient, or of later complication, without mention of misadventure at the time of the procedure; I95.89 Other hypotension; R31.9 Hematuria, unspecified; Z53.39 Other specified procedure converted to open procedure; Z95.1 Presence of aortocoronary bypass graft; Z87.891 Personal history of nicotine dependence; Z79.899 Other long term (current) drug therapy; Z79.84 Long term (current) use of oral hypoglycemic drugs; Z79.82 Long term (current) use of aspirin
CPT/HCPCS: 36415; 36416; 36430; 71045; 74018; 74022; 76000; 80048; 82805; 83690; 85025; 86850; 86900; 86901; 93005; 93010; 94002; C1889; C1894; C9113; J0171; J0360; J0690; J1100; J1630; J1642; J1644; J1815; J1940; J2250; J2270; J2405; J2704; J2720; J2765; J7050; J7120; P9016; P9045; Q0162; S0020

== ENCOUNTER 2021-11-24 10:15 | Outpatient (CLI) | payer MEDICARE, BC ==
[2021-11-24 11:21] LABS: Hemoglobin 13.6 g/dL (13.5-17.5); Mean Corpuscular HGB CONC 31.9 g/dL (32.0-36.0); Mean Corpuscular Hemoglobin 27.3 pg (27.0-33.0); Mean Corpuscular Volume 85.5 fl (81.2-95.1); Mean Platelet Volume 11.7 fl (7.4-10.4); Platelet Count 155 10x3/uL (150-450); RBC Distribution Width 14.7 % (11.5-14.5); Red Blood Cell (RBC) Count 4.98 10x6/uL (4.32-5.72); White Blood Cell (WBC) Count 4.9 10x3/uL (3.5-10.5)
[2021-11-24 13:28] LABS: Anion Gap 17 mmol/L (10-20); BUN (Urea Nitrogen) 10 mg/dL (8.4-25.7); Calc. Creatinine Clearance 0 mL/min (70-130); Calcium 9.5 mg/dL (7.8-10.44); Carbon Dioxide 25 mmol/L (23-31); Chloride 101 mmol/L (98-107); Glucose 137 mg/dL (83-110); Potassium 4.5 mmol/L (3.5-5.1); Sodium 138 mmol/L (136-145)
[2021-11-24 21:44] LABS: SARS-CoV-2 PCR by NAA Not Detected (NotDetected)
== END 2021-11-24 10:16 | disposition home or self-care (01) ==
LOC: LABBT 10:15
PROVIDERS: ATTEND Thoracic Surgery (Cardiothoracic Vascular Surgery)
DX: Z01.812 Encounter for preprocedural laboratory examination (principal); Z20.822 Contact with and (suspected) exposure to COVID-19
CPT/HCPCS: 80048; 85027; U0003; U0005

== ENCOUNTER 2021-12-11 16:21 | Inpatient (IN) | payer MEDICARE, BC ==
[~2021-12-11 16:21] MED LIST: Heparin 1,000 UNITS/ML VIAL ONE; Iopamidol 370 76% 100 ML VIAL ONE
[2021-12-11] MEDS ORDERED: Metoprolol Tartrate 5 MG/5 ML VIAL ONE (16:39)
[2021-12-11 18:25] LABS: #Lymphocytes 0.8 thou/uL (1.20-3.40); #Monocytes 0.4 thou/uL (0.11-0.59); %Basophils 0.2 % (0.0-1.0); %Eosinophils 0.1 % (0.0-10.0); %Lymphocytes 8.4 % (21.0-51.0); %Monocytes 4.6 % (0.0-10.0); %Neutrophils 86.7 % (42.0-75.0); Hemoglobin 9.7 g/dL (14.0-18.0); Mean Corpuscular HGB CONC 32.9 g/dL (32.0-36.0); Mean Corpuscular Hemoglobin 30.1 pg (27.0-31.0); Mean Corpuscular Volume 91.4 fL (78.0-98.0); Mean Platelet Volume 7.6 fL (7.4-10.4); Platelet Count 315 thou/uL (130-400); RBC Distribution Width 14.2 % (11.5-14.5); Red Blood Cell (RBC) Count 3.21 mill/uL (4.70-6.10); White Blood Cell (WBC) Count 9.2 thou/uL (4.8-10.8)
[2021-12-11 18:48] LABS: ALT (SGPT) 22 U/L (8-55); AST (SGOT) 32 U/L (5-34); Albumin 3.6 g/dL (3.4-4.8); Alkaline Phosphatase 71 U/L (40-110); Anion Gap 16 mmol/L (10-20); BUN (Urea Nitrogen) 24 mg/dL (8.4-25.7); Bilirubin, Total 0.8 mg/dL (0.2-1.2); Calc. Creatinine Clearance 0 mL/min (70-130); Calcium 8.3 mg/dL (7.8-10.44); Carbon Dioxide 19 mmol/L (23-31); Chloride 102 mmol/L (98-107); Glucose 212 mg/dL (83-110); Magnesium 1.7 mg/dL (1.6-2.6); Potassium 3.1 mmol/L (3.5-5.1); Protein, Total 6.6 g/dL (5.8-8.1); Sodium 134 mmol/L (136-145)
[2021-12-11 19:09] LABS: CKMB 5.8 ng/mL (0-6.6)
[2021-12-11 19:52] LABS: Bacteria/HPF None Seen HPF (None Seen); Bilirubin Negative (Negative); Blood, Urine Negative (Negative); Clarity Clear (Clear); Glucose, Urine (Dipstick) Normal (Negative); Ketone, Urine Negative (Negative); Leukocyte Negative Leu/uL (Negative); Nitrite Negative (Negative); Protein, Urine (Dipstick) 30 mg/dL (Neg-Trace); RBC/HPF 0-3 HPF (0-3); Specific Gravity, Urine 1.046 (1.002-1.036); Squamous Epithelial None Seen HPF (0-3); Urobilinogen Normal mg/dL (Less than 2); WBC/HPF 0-3 HPF (0-3); pH, Urine 5.5 (5.0-9.0)
[2021-12-11] MEDS ORDERED: cefTRIAXone\\ROCEPHIN 2 GM VIAL ONE (19:53)
[2021-12-11] MEDS ORDERED: Fentanyl 100 MCG/2 ML VIAL ONE (19:54)
[2021-12-11] MEDS ORDERED: Ondansetron ODT 4 MG TAB SL PRN (20:00)
[2021-12-11] MEDS ORDERED: Sodium Chloride 0.9% 1,000 ML IV SCH (20:00)
[2021-12-11] MEDS ORDERED: Ondansetron PF 4 MG/2 ML Vial IVP PRN (20:00)
[2021-12-11] MEDS ORDERED: Morphine 4 MG/ML VIAL SLOW IVP PRN (20:30)
[2021-12-11] MEDS ORDERED: hydrALAZINE 20 MG/ML VIAL SLOW IVP PRN (20:30)
[2021-12-11] MEDS ORDERED: Dextrose 50% Abboject 50 ML SYRINGE SLOW IVP PRN (20:30)
[2021-12-11] MEDS ORDERED: Dextrose 5% in Water 1,000 ML IV PRN (20:30)
[2021-12-11] MEDS ORDERED: Morphine 2 MG/ML VIAL SLOW IVP PRN (20:30)
[2021-12-11] MEDS ORDERED: Lactated Ringer's 1,000 ML IV SCH (20:45)
[2021-12-11] MEDS ORDERED: NS 0.9% w/ 20 MEQ KCL 1,000 ML IV SCH (21:00)
[2021-12-11] MEDS: Enoxaparin Sodium 40 MG/0.4 ML SYRINGE SC SCH (22:36)
[2021-12-11] MEDS: Famotidine/PF 20 mg/2ml Vial SLOW IVP SCH (22:36)
[2021-12-11] MEDS: NS 0.9% w/ 20 MEQ KCL 1,000 ML IV SCH (23:05)
[2021-12-12 02:08] LABS: Troponin I 0.043 ng/mL (< 0.028)
[2021-12-12 04:34] LABS: #Lymphocytes 0.8 thou/uL (1.20-3.40); #Monocytes 0.4 thou/uL (0.11-0.59); #Neutrophils 5.6 thou/uL (1.40-6.50); %Basophils 0.2 % (0.0-1.0); %Eosinophils 0.2 % (0.0-10.0); %Lymphocytes 11.6 % (21.0-51.0); %Monocytes 6.1 % (0.0-10.0); %Neutrophils 81.9 % (42.0-75.0); Hemoglobin 9.7 g/dL (14.0-18.0); Mean Corpuscular HGB CONC 34.1 g/dL (32.0-36.0); Mean Corpuscular Hemoglobin 30.8 pg (27.0-31.0); Mean Corpuscular Volume 90.5 fL (78.0-98.0); Mean Platelet Volume 7.6 fL (7.4-10.4); Platelet Count 262 thou/uL (130-400); RBC Distribution Width 14.5 % (11.5-14.5); Red Blood Cell (RBC) Count 3.15 mill/uL (4.70-6.10); White Blood Cell (WBC) Count 6.8 thou/uL (4.8-10.8)
[2021-12-12] MEDS: NS 0.9% w/ 20 MEQ KCL 1,000 ML IV SCH ×4 (05:06→18:07)
[2021-12-12 05:18] LABS: Anion Gap 15 mmol/L (10-20); BUN (Urea Nitrogen) 22 mg/dL (8.4-25.7); Calc. Creatinine Clearance 58 mL/min (70-130); Carbon Dioxide 20 mmol/L (23-31); Chloride 104 mmol/L (98-107); Glucose 186 mg/dL (83-110); Potassium 3.2 mmol/L (3.5-5.1); Sodium 136 mmol/L (136-145)
[2021-12-12 16:35] LABS: SARS-CoV-2 PCR by NAA Not Detected (NotDetected)
[2021-12-12] MEDS: Famotidine/PF 20 mg/2ml Vial SLOW IVP SCH (21:28)
[2021-12-12] MEDS: Enoxaparin Sodium 40 MG/0.4 ML SYRINGE SC SCH (21:28)
[2021-12-13] MEDS: NS 0.9% w/ 20 MEQ KCL 1,000 ML IV SCH ×2 (04:51→15:59)
[2021-12-13] MEDS: Famotidine/PF 20 mg/2ml Vial SLOW IVP SCH (21:31)
[2021-12-13] MEDS: Enoxaparin Sodium 40 MG/0.4 ML SYRINGE SC SCH (21:31)
[2021-12-14] MEDS: NS 0.9% w/ 20 MEQ KCL 1,000 ML IV SCH ×3 (01:18→13:50)
[2021-12-14 05:18] LABS: Anion Gap 15 mmol/L (10-20); BUN (Urea Nitrogen) 8 mg/dL (8.4-25.7); Calc. Creatinine Clearance 79 mL/min (70-130); Calcium 7.7 mg/dL (7.8-10.44); Carbon Dioxide 17 mmol/L (23-31); Chloride 111 mmol/L (98-107); Glucose 136 mg/dL (83-110); Potassium 3.5 mmol/L (3.5-5.1); Sodium 139 mmol/L (136-145)
[2021-12-14] MEDS: Famotidine/PF 20 mg/2ml Vial SLOW IVP SCH ×2 (09:23→20:48)
[2021-12-14] MEDS ORDERED: Magnesium 2 GM/50 ML(in water) 2 GM in Premix Bag 1 BAG IVPB SCH (11:00)
[2021-12-14] MEDS: Metoprolol Tartrate 5 MG/5 ML VIAL IVP SCH ×3 (11:17→20:48)
[2021-12-14] MEDS ORDERED: Dextrose 50% Abboject 50 ML SYRINGE SLOW IVP PRN (13:41)
[2021-12-14] MEDS ORDERED: Dextrose 5% in Water 1,000 ML IV PRN (13:41)
[2021-12-14 13:53] LABS: #Lymphocytes 1.1 thou/uL (1.20-3.40); #Monocytes 0.5 thou/uL (0.11-0.59); #Neutrophils 5.6 thou/uL (1.40-6.50); %Eosinophils 0.6 % (0.0-10.0); %Lymphocytes 15.7 % (21.0-51.0); %Monocytes 6.4 % (0.0-10.0); %Neutrophils 77.4 % (42.0-75.0); Hemoglobin 9.8 g/dL (14.0-18.0); Mean Corpuscular HGB CONC 32.3 g/dL (32.0-36.0); Mean Corpuscular Hemoglobin 29.9 pg (27.0-31.0); Mean Corpuscular Volume 92.4 fL (78.0-98.0); Mean Platelet Volume 7.6 fL (7.4-10.4); Platelet Count 297 thou/uL (130-400); RBC Distribution Width 14.6 % (11.5-14.5); Red Blood Cell (RBC) Count 3.27 mill/uL (4.70-6.10); White Blood Cell (WBC) Count 7.2 thou/uL (4.8-10.8)
[2021-12-14] MEDS ORDERED: Sodium Acetate 2 mEq/ml 40 MEQ, Sodium Chloride 30 MEQ, Potassium Chloride 20 MEQ, Pota... IV SCH (18:00)
[2021-12-14] MEDS: Enoxaparin Sodium 40 MG/0.4 ML SYRINGE SC SCH (20:48)
[2021-12-15] MEDS: NS 0.9% w/ 20 MEQ KCL 1,000 ML IV SCH ×3 (00:03→21:24)
[2021-12-15] MEDS: Metoprolol Tartrate 5 MG/5 ML VIAL IVP SCH ×4 (02:03→20:13)
[2021-12-15 05:00] LABS: Anion Gap 14 mmol/L (10-20); BUN (Urea Nitrogen) 6 mg/dL (8.4-25.7); Calc. Creatinine Clearance 80 mL/min (70-130); Calcium 7.5 mg/dL (7.8-10.44); Carbon Dioxide 17 mmol/L (23-31); Chloride 112 mmol/L (98-107); Glucose 140 mg/dL (83-110); Magnesium 1.7 mg/dL (1.6-2.6); Phosphorus 2.5 mg/dL (2.3-4.7); Potassium 3.8 mmol/L (3.5-5.1); Sodium 139 mmol/L (136-145)
[2021-12-15] MEDS: Famotidine/PF 20 mg/2ml Vial SLOW IVP SCH ×2 (09:16→20:13)
[2021-12-15] MEDS ORDERED: Sodium Acetate 2 mEq/ml 40 MEQ, Sodium Chloride 30 MEQ, Potassium Chloride 20 MEQ, Pota... IV SCH (14:00)
[2021-12-15] MEDS: Enoxaparin Sodium 40 MG/0.4 ML SYRINGE SC SCH (20:13)
[2021-12-16] MEDS: HumaLOG 300 UNITS/3 ML VIAL SC PRN ×3 (00:43→18:06)
[2021-12-16] MEDS: Metoprolol Tartrate 5 MG/5 ML VIAL IVP SCH ×4 (00:43→18:41)
[2021-12-16] MEDS: Ondansetron PF 4 MG/2 ML Vial IVP PRN ×2 (05:59→23:37)
[2021-12-16] MEDS: NS 0.9% w/ 20 MEQ KCL 1,000 ML IV SCH ×2 (06:07→15:26)
[2021-12-16] MEDS: Famotidine/PF 20 mg/2ml Vial SLOW IVP SCH ×2 (10:41→21:50)
[2021-12-16 11:14] LABS: #Lymphocytes 0.9 thou/uL (1.20-3.40); #Monocytes 0.5 thou/uL (0.11-0.59); #Neutrophils 4.4 thou/uL (1.40-6.50); %Basophils 0.1 % (0.0-1.0); %Eosinophils 0.7 % (0.0-10.0); %Lymphocytes 15.6 % (21.0-51.0); %Monocytes 8.8 % (0.0-10.0); %Neutrophils 74.9 % (42.0-75.0); Hemoglobin 8.1 g/dL (14.0-18.0); Mean Corpuscular HGB CONC 30.7 g/dL (32.0-36.0); Mean Corpuscular Hemoglobin 29.7 pg (27.0-31.0); Mean Corpuscular Volume 96.8 fL (78.0-98.0); Mean Platelet Volume 7.6 fL (7.4-10.4); Platelet Count 220 thou/uL (130-400); RBC Distribution Width 14.9 % (11.5-14.5); Red Blood Cell (RBC) Count 2.72 mill/uL (4.70-6.10); White Blood Cell (WBC) Count 5.9 thou/uL (4.8-10.8)
[2021-12-16] MEDS ORDERED: Sodium Acetate 2 mEq/ml 40 MEQ, Sodium Chloride 30 MEQ, Potassium Chloride 20 MEQ, Pota... IV SCH (14:00)
[2021-12-16] MEDS: Enoxaparin Sodium 40 MG/0.4 ML SYRINGE SC SCH (21:50)
[2021-12-17] MEDS: HumaLOG 300 UNITS/3 ML VIAL SC PRN ×2 (01:04→06:17)
[2021-12-17] MEDS: Metoprolol Tartrate 5 MG/5 ML VIAL IVP SCH ×4 (01:05→18:18)
[2021-12-17] MEDS: Famotidine/PF 20 mg/2ml Vial SLOW IVP SCH ×2 (09:35→20:38)
[2021-12-17] MEDS: NS 0.9% w/ 20 MEQ KCL 1,000 ML IV SCH ×2 (09:35→17:10)
[2021-12-17] MEDS ORDERED: POTASSIUM CHLORIDE IV SCH (14:00)
[2021-12-17] MEDS ORDERED: [UNRECOGNIZED DRUG - OTHER] IV SCH (14:00)
[2021-12-17] MEDS ORDERED: SODIUM ACETATE IV SCH (14:00)
[2021-12-17 14:01] VITALS: BMI 28.3
[2021-12-17] MEDS ORDERED: Furosemide 20 MG/2 ML VIAL SLOW IVP SCH (16:15)
[2021-12-17] MEDS: Enoxaparin Sodium 40 MG/0.4 ML SYRINGE SC SCH (20:38)
[2021-12-18] MEDS: HumaLOG 300 UNITS/3 ML VIAL SC PRN ×4 (00:57→18:34)
[2021-12-18] MEDS: Metoprolol Tartrate 5 MG/5 ML VIAL IVP SCH ×4 (00:57→22:01)
[2021-12-18] MEDS: NS 0.9% w/ 20 MEQ KCL 1,000 ML IV SCH (06:00)
[2021-12-18] MEDS: Famotidine/PF 20 mg/2ml Vial SLOW IVP SCH ×2 (08:58→22:01)
[2021-12-18] MEDS ORDERED: Furosemide 20 MG/2 ML VIAL SLOW IVP SCH (11:15)
[2021-12-18] MEDS ORDERED: [UNRECOGNIZED DRUG - OTHER] IV SCH (14:00)
[2021-12-18] MEDS ORDERED: SODIUM ACETATE IV SCH (14:00)
[2021-12-18] MEDS ORDERED: POTASSIUM CHLORIDE IV SCH (14:00)
[2021-12-18] MEDS: Enoxaparin Sodium 40 MG/0.4 ML SYRINGE SC SCH (22:01)
[2021-12-19] MEDS: Metoprolol Tartrate 5 MG/5 ML VIAL IVP SCH ×4 (01:06→19:06)
[2021-12-19] MEDS ORDERED: HumaLOG 300 UNITS/3 ML VIAL SC PRN (01:15)
[2021-12-19 05:14] LABS: #Eosinphils 0.1 thou/uL (0.0-0.7); #Lymphocytes 0.9 thou/uL (1.20-3.40); #Monocytes 0.3 thou/uL (0.11-0.59); #Neutrophils 3.1 thou/uL (1.40-6.50); %Basophils 0.4 % (0.0-1.0); %Eosinophils 1.5 % (0.0-10.0); %Neutrophils 70.2 % (42.0-75.0); Hemoglobin 8.1 g/dL (14.0-18.0); Mean Corpuscular HGB CONC 31.5 g/dL (32.0-36.0); Mean Corpuscular Hemoglobin 29.4 pg (27.0-31.0); Mean Corpuscular Volume 93.5 fL (78.0-98.0); Mean Platelet Volume 8.6 fL (7.4-10.4); Platelet Count 171 thou/uL (130-400); RBC Distribution Width 15.5 % (11.5-14.5); Red Blood Cell (RBC) Count 2.75 mill/uL (4.70-6.10); White Blood Cell (WBC) Count 4.4 thou/uL (4.8-10.8)
[2021-12-19 05:35] LABS: ALT (SGPT) 21 U/L (8-55); AST (SGOT) 25 U/L (5-34); Albumin 2.8 g/dL (3.4-4.8); Alkaline Phosphatase 79 U/L (40-110); Anion Gap 15 mmol/L (10-20); BUN (Urea Nitrogen) 8 mg/dL (8.4-25.7); Bilirubin, Total 0.4 mg/dL (0.2-1.2); Calc. Creatinine Clearance 89 mL/min (70-130); Calcium 7.9 mg/dL (7.8-10.44); Carbon Dioxide 22 mmol/L (23-31); Chloride 102 mmol/L (98-107); Globulin 3.3 g/dL (2.4-3.5); Glucose 249 mg/dL (83-110); Magnesium 1.4 mg/dL (1.6-2.6); Phosphorus 2.9 mg/dL (2.3-4.7); Potassium 3.9 mmol/L (3.5-5.1); Protein, Total 6.1 g/dL (5.8-8.1); Sodium 135 mmol/L (136-145)
[2021-12-19] MEDS: HumaLOG 300 UNITS/3 ML VIAL SC PRN ×2 (06:09→13:25)
[2021-12-19] MEDS: Famotidine/PF 20 mg/2ml Vial SLOW IVP SCH ×2 (08:38→21:13)
[2021-12-19 18:02] LABS: SARS-CoV-2 PCR by NAA Not Detected (NotDetected)
[2021-12-19] MEDS: Sacubitril 49 MG/Valsartan 51 MG TABLET PO SCH (21:12)
[2021-12-19] MEDS: Enoxaparin Sodium 40 MG/0.4 ML SYRINGE SC SCH (21:12)
[2021-12-20] MEDS: Metoprolol Tartrate 5 MG/5 ML VIAL IVP SCH (00:02)
[2021-12-20] MEDS: HumaLOG 300 UNITS/3 ML VIAL SC PRN (05:29)
[2021-12-20] MEDS: Famotidine/PF 20 mg/2ml Vial SLOW IVP SCH (08:50)
[2021-12-20] MEDS: Sacubitril 49 MG/Valsartan 51 MG TABLET PO SCH (08:50)
[2021-12-20] MEDS ORDERED: Non-Formulary Item 1 EACH (Multivit-Mins/Iron/Folic/Lycop [Centrum Men's Tablet] 1 EACH T PO SCH (09:00)
[2021-12-20] MEDS ORDERED: Furosemide 20 MG TAB PO SCH (09:00)
[2021-12-20] MEDS ORDERED: Alogliptin 25 MG TAB PO SCH (09:00)
[2021-12-20] MEDS ORDERED: Aspirin 81 mg Enteric Coated Tablet PO SCH (09:00)
[2021-12-20] MEDS ORDERED: Multivitamin W/ Minerals 1 TAB PO SCH (09:00)
[2021-12-20 12:16] VITALS: BP 148/82; TEMP 98
[2021-12-20] MEDS ORDERED: metFORMIN 500 MG TAB PO SCH (17:00)
[2021-12-20] MEDS ORDERED: Atorvastatin Calcium 20 MG TAB PO SCH (21:00)
== END 2021-12-20 12:00 | DRG 394 ==
LOC: ERS 16:21 → 2NO 20:54
PROVIDERS: ADMIT Specialist; ATTEND Specialist
PROC: 0D9670Z Drainage of Stomach with Drainage Device, Via Natural or Artificial Opening (ICD-10-PCS; principal; 2021-12-11)
PROC: 3E0436Z Introduction of Nutritional Substance into Central Vein, Percutaneous Approach (ICD-10-PCS; 2021-12-15)
PROC: 02HV33Z Insertion of Infusion Device into Superior Vena Cava, Percutaneous Approach (ICD-10-PCS; 2021-12-15)
PROC: B5181ZA Fluoroscopy of Superior Vena Cava using Low Osmolar Contrast, Guidance (ICD-10-PCS; 2021-12-15)
PROC: B548ZZA Ultrasonography of Superior Vena Cava, Guidance (ICD-10-PCS; 2021-12-15)
DX: K91.89 Other postprocedural complications and disorders of digestive system (principal); K56.7 Ileus, unspecified; E44.0 Moderate protein-calorie malnutrition; I47.1 Supraventricular tachycardia; N17.9 Acute kidney failure, unspecified; Z20.822 Contact with and (suspected) exposure to COVID-19; E11.9 Type 2 diabetes mellitus without complications; I48.91 Unspecified atrial fibrillation; I25.5 Ischemic cardiomyopathy; E78.5 Hyperlipidemia, unspecified; I10 Essential (primary) hypertension; I25.10 Atherosclerotic heart disease of native coronary artery without angina pectoris; Z95.1 Presence of aortocoronary bypass graft; Z68.28 Body mass index [BMI] 28.0-28.9, adult; Z87.891 Personal history of nicotine dependence; Z79.899 Other long term (current) drug therapy; Z79.84 Long term (current) use of oral hypoglycemic drugs; Z79.82 Long term (current) use of aspirin; Z95.828 Presence of other vascular implants and grafts; Z98.890 Other specified postprocedural states
CPT/HCPCS: 36415; 36416; 36569; 71045; 71046; 71275; 74018; 74019; 74022; 74177; 80048; 80053; 81003; 81015; 82553; 83690; 83735; 84100; 84443; 84484; 85025; 87040; 93005; 96374; 96375; C1751; J0610; J0696; J1644; J1650; J1815; J1940; J2270; J2405; J3010; J3475; J3480; Q9967; S0028; U0003; U0005

== ENCOUNTER 2024-05-09 11:23 | Emergency (ER) | payer MEDICARE, BC ==
[2024-05-09 12:25] LABS: #Basophils Less than 0.03 10x3/uL (0.0-0.2); #Eosinophils Less than 0.03 10x3/uL (0.0-0.7); %Basophils 0.1 % (0.0-1.0); %Lymphocytes 8.7 % (21.0-51.0); %Monocytes 4.2 % (0.0-10.0); %Neutrophils 86.6 % (42.0-75.0); Hematocrit 44.1 % (42.0-52.0); Hemoglobin 13.7 g/dL (14.0-18.0); Mean Corpuscular HGB CONC 31.1 g/dL (32.0-36.0); Mean Corpuscular Hemoglobin 27.9 pg (27.0-31.0); Mean Corpuscular Volume 89.8 fL (78.0-98.0); Mean Platelet Volume 11.7 fL (7.4-10.4); Platelet Count 150 10x3/uL (130-400); RBC Distribution Width 14.4 % (11.5-14.5); Red Blood Cell (RBC) Count 4.91 mill/uL (4.70-6.10)
[2024-05-09 12:43] LABS: ALT (SGPT) 14 U/L (8-55); AST (SGOT) 22 U/L (5-34); Alkaline Phosphatase 92 U/L (40-110); Anion Gap 17 mmol/L (10-20); BUN (Urea Nitrogen) 13 mg/dL (8.4-25.7); Bilirubin, Total 0.5 mg/dL (0.2-1.2); Calc. Creatinine Clearance 0 mL/min (70-130); Calcium 9.3 mg/dL (7.8-10.44); Carbon Dioxide 18 mmol/L (23-31); Chloride 102 mmol/L (98-107); Estimated GFR 47; Globulin 3.5 g/dL (2.4-3.5); Glucose 211 mg/dL (83-110); Lipase 57 U/L (8-78); Potassium 4.3 mmol/L (3.5-5.1); Protein, Total 7.5 g/dL (5.8-8.1); Sodium 133 mmol/L (136-145)
== END 2024-05-09 12:39 | disposition home or self-care (01) ==
LOC: ERS 11:23
DX: R10.84 Generalized abdominal pain (principal); I10 Essential (primary) hypertension; E11.9 Type 2 diabetes mellitus without complications
CPT/HCPCS: 36415; 80053; 83690; 85025

== ENCOUNTER 2025-07-02 08:06 | Outpatient (CLI) | payer MEDICARE, BC ==
[2025-07-02 09:09] LABS: Estimated GFR - POC 52.0
== END 2025-07-02 08:07 | disposition home or self-care (01) ==
LOC: SCSMRI 08:06
PROVIDERS: ATTEND Student in an Organized Health Care Education/Training Program
DX: R97.20 Elevated prostate specific antigen [PSA] (principal)
CPT/HCPCS: 36415; 72197; 82565